=== PATIENT | female | born 1945 | race Caucasian/White ===

== ENCOUNTER 2018-05-13 06:21 | Day surgery (SDC) | payer OTHER ==
[~2018-05-13 06:21] MED LIST: HYOSCYAMINE0.125 M1 SL; INTESTINEX680 MG PO; REGLAN PO; SYNTHROID100 MCG PO; ZANTAC150 M3 PO; [UNRECOGNIZED DRUG - OTHER] PO
== END 2018-05-13 09:40 | disposition home or self-care (01) ==
LOC: AMB-ENDOS 06:21
DX: K57.32 Diverticulitis of large intestine without perforation or abscess without bleeding (principal); J45.909 Unspecified asthma, uncomplicated; I27.29 Other secondary pulmonary hypertension; K64.8 Other hemorrhoids